=== PATIENT | male | born 1960 | race Caucasian/White ===

== ENCOUNTER 2019-08-10 09:00 | Emergency (ER) | payer BC, OTHER ==
[~2019-08-10] VITALS: Ht 182.9 cm; Wt 116.6 kg
[~2019-08-10 09:00] MED LIST: ASPI-482 PO; CARV12.511 PO; CLOP75TA PO; HYDR-2145 PO; LOSA100T14 PO; MULT-18 PO; NIAC500T82 PO; PANTOPROZOLE; SIMV80TA17 PO
--- NOTE | 2019-08-10 10:58 | PHYS DOC ---
Past Medical History Past Medical History: CAD, Kidney Stone Past Surgical History: Angioplasty, Coronary Bypass Surgery Smoking: Cigarettes (The patient is a nonsmoker.) Adult General Chief Complaint Chief Complaint: FLANK PAIN HPI HPI Patient is a 58-year-old male who presents to the emergency department for evaluation. He states he awakened yesterday morning with right-sided flank pain, which feels similar to his prior kidney stone episodes. He states he has a history of a large intrarenal calculus on the right side, possibly a staghorn- type calculus, which has been seen on prior imaging. He reports some decreased urine output, and some increased urinary frequency, but did not have any dysuria or hematuria. He has not had any nausea, or vomiting. He reports his pain is significantly improved this morning, to the point that he declines any need for analgesics at this time. He denies any chest pain shortness of breath, dizziness or lightheadedness. There are no alleviating or exacerbating factors to his symptoms. Review of Systems Review of Systems Constitutional: Denies fever or chills [] Eyes: Denies change in visual acuity, redness, or eye pain [] HENT: Denies nasal congestion or sore throat [] Respiratory: Denies cough or shortness of breath [] Cardiovascular: The patient denies any shortness of breath, chest pain, palpitations, or orthopnea [] GI: Denies abdominal pain, nausea, vomiting, bloody stools or diarrhea [] : Denies dysuria or hematuria [] Musculoskeletal: Denies back pain or joint pain [] Integument: Denies rash or skin lesions [] Neurologic: Denies headache, focal weakness or sensory changes [] Endocrine: Denies polyuria or polydipsia [] All other systems were reviewed and found to be within normal limits, except as documented in this note. Allergies Allergies Allergies Coded Allergies Type Severity Reaction Last Updated Verified No Known Drug Allergies 03/26/14 No Physical Exam Physical Exam PHYSICAL EXAM: CONSTITUTIONAL: Well developed, well nourished HEAD: normocephalic, atraumatic EENT: PERRL, EOMI. Conjunctivae normal color, sclerae non-icteric; moist mucous membranes. NECK: Supple, non-tender; no meningismus. LUNGS: Lungs CTA, breathing even and unlabored. Normal air movement. HEART: Regular rate and rhythm, no murmur CHEST: No deformity; non-tender ABDOMEN: The abdomen is soft, and non-tender, no masses or bruits. EXTREM: Normal ROM; no deformity, no calf tenderness. Normal pulses palpable in all extremities. There is no pedal edema. SKIN: No rash; no diaphoresis NEURO: Alert; normal speech and cognition; CN's grossly intact; strength grossly intact without focal deficit. BACK: No CVA TTP. Current Patient Data Vital Signs Vital Signs Date Time Temp Pulse Resp B/P (MAP) Pulse Ox O2 Delivery O2 Flow Rate FiO2 08/10/19 10:56 98.0 59 20 154/67 (96) 99 Room Air 98.0 Lab Values Laboratory Tests Test 08/10/19 10:41 08/10/19 11:18 08/10/19 12:05 Urine Collection Type Unknown Urine Color Yellow Urine Clarity Clear Urine pH 6.0 Urine Specific [place] 1.020 Urine Protein Negative mg/dL (NEG-TRACE) Urine Glucose (UA) Negative mg/dL (NEG) Urine Ketones (Stick) Negative mg/dL (NEG) Urine Blood Negative (NEG) Urine Nitrite Negative (NEG) Urine Bilirubin Negative (NEG) Urine Urobilinogen Dipstick 0.2 mg/dL (0.2 mg/dL) Urine Leukocyte Esterase Negative (NEG) Urine RBC Rare /HPF (0-2) Urine WBC Rare /HPF (0-4) Urine Squamous Epithelial Cells Occ /LPF Urine Bacteria 0 /HPF (0-FEW) Urine Mucus Slight /LPF Troponin I Quantitative < 0.017 ng/mL (0.000-0.055) White Blood Count 14.7 x10^3/uL (4.0-11.0) H Red Blood Count 4.54 x10^6/uL (4.30-5.70) Hemoglobin 13.5 g/dL (13.0-17.5) Hematocrit 40.4 % (39.0-53.0) Mean Corpuscular Volume 89 fL (79-100) Mean Corpuscular Hemoglobin 30 pg (25-35) Mean Corpuscular Hemoglobin Concent 33 g/dL (31-37) Red Cell Distribution Width 14.2 % (11.5-14.5) Platelet Count 249 x10^3/uL (140-400) Neutrophils (%) (Auto) 79 % (31-73) H Lymphocytes (%) (Auto) 12 % (24-48) L Monocytes (%) (Auto) 8 % (0-9) Eosinophils (%) (Auto) 0 % (0-3) Basophils (%) (Auto) 0 % (0-3) Neutrophils # (Auto) 11.7 x10^3/uL (1.8-7.7) H Lymphocytes # (Auto) 1.8 x10^3/uL (1.0-4.8) Monocytes # (Auto) 1.2 x10^3/uL (0.0-1.1) H Eosinophils # (Auto) 0.0 x10^3/uL (0.0-0.7) Basophils # (Auto) 0.1 x10^3/uL (0.0-0.2) Sodium Level 141 mmol/L (136-145) Potassium Level 4.1 mmol/L (3.5-5.1) Chloride Level 107 mmol/L (98-107) Carbon Dioxide Level 24 mmol/L (21-32) Anion Gap 10 (6-14) Blood Urea Nitrogen 16 mg/dL (8-26) Creatinine 1.4 mg/dL (0.7-1.3) H Estimated GFR (Cockcroft-Gault) 51.7 BUN/Creatinine Ratio 11 (6-20) Glucose Level 99 mg/dL (70-99) Calcium Level 9.6 mg/dL (8.5-10.1) Total Bilirubin 1.0 mg/dL (0.2-1.0) Aspartate Amino Transferase (AST) 16 U/L (15-37) Alanine Aminotransferase (ALT) 15 U/L (16-63) L Alkaline Phosphatase 68 U/L (46-116) Total Protein 7.4 g/dL (6.4-8.2) Albumin 3.6 g/dL (3.4-5.0) Albumin/Globulin Ratio 0.9 (1.0-1.7) L Lipase 64 U/L (73-393) L Laboratory Tests 08/10/19 12:05 Laboratory Tests 08/10/19 12:05 EKG EKG Normal sinus rhythm at a rate of 60 beats for minute, normal axis, right bundle- branch block with otherwise normal intervals, without acute ischemic ST/T changes.[] Radiology/Procedures Radiology/Procedures PROCEDURE: CT ABDOMEN PELVIS WO CONTRAST CT ABDOMEN PELVIS WO CONTRAST Indication: Right flank pain, history of renal stones. Exposure: One or more of the following individualized dose reduction techniques were utilized for this examination: 1. Automated exposure control 2. Adjustment of the mA and/or kV according to patient size 3. Use of iterative reconstruction technique. Comparison: Limited axial images are available from a prior study of 04/17/2005. Technique: No intravenous contrast given. No oral contrast per request. Findings: Evaluation of solid viscera, bowel and vasculature is compromised by the noncontrast technique. Mild markings are identified in the lung bases, compatible with atelectasis. Coronary arteries are densely calcified. Heart size appears mildly enlarged. Small hypodense lesion in the right lobe of liver measures 8 mm, too small to characterize but would commonly be benign without other risk factors. Spleen unremarkable. Pancreas unremarkable. Small right adrenal gland nodule measures 17 mm not clearly seen on the prior study but that could be due to technique and slice thickness differences. There is also a fatty mass at the right adrenal measuring 2.0 cm diameter, was seen on the prior study. Left adrenal unremarkable. Mild right hydronephrosis and ureteric dilatation to the very distal right ureter where there is a 9 mm calculus. Multiple additional intrarenal calculi on the right largest in the upper pole measuring 9 mm. Mild stranding within the right perinephric fat. Mild right renal swelling. No evidence of left hydronephrosis or calculus. 12 mm lesion at the anterior right kidney measures about 25 Hounsfield units, greater than simple cystic density. Low-density lesion of the right kidney is most likely a cyst. No calcified gallstone. Aorta is nonaneurysmal. Mild aortic calcification. Small mesenteric and aortocaval lymph nodes are identified without evidence of pathologic enlargement. No evidence of acute colitis. No significant small bowel distention. The appendix is not clearly visualized. Examination of bowel is limited due to lack of oral contrast. Moderate retained stool within the colon particularly on the right. No significant ascites. No evidence of pneumoperitoneum. Urinary bladder is nondistended, difficult to evaluate. Prostate gland is mildly enlarged. Degenerative spondylosis. Retrolisthesis of the L5 vertebral body to L4 and S1. Severe lumbar stenosis, greatest at L4-L5. No evidence of aggressive bone destruction IMPRESSION: 1. Coronary artery calcification. 2. At least mildly obstructive calculus in the distal right ureter, measures 9 mm. Right perinephric stranding could be postobstructive or indicative of pyelonephritis. Additional intrarenal calculi on the right. 3. Small fatty mass of the right adrenal gland, roughly similar as prior images, likely a myelolipoma. Number there is also a small soft tissue density mass in the right adrenal measuring 17 mm, not definitely seen previously but that could be due to technique difference. Still, this could represent a benign adenoma. Could further evaluate with MRI or follow-up CT. 4. Couple of right renal lesions, one of which is slightly hyperdense, could indicate hemorrhagic cyst. Could be further evaluated with renal ultrasound. 5. Lumbar spondylosis with severe stenosis. 6. Small subcentimeter liver lesion, most likely benign in the absence of other risk factors. [] Course & Med Decision Making Course & Med Decision Making Pertinent Labs and Imaging studies reviewed. (See chart for details) [] 1:35 PM: The patient's condition remains stable. his pain remains relatively well controlled and is to continues to decline the need for analgesic medication at this time. He expresses significant concern about the size of the stone, it is unlikeliness to pass, the fact that he works out of town, and is afraid that he will have a recurrence of pain while at work. There is no urology coverage available at this hospital. I discussed options for outpatient follow-up with the patient is not happy about this option. He would like to be hospitalized to have his stone managed more definitively. would be his facility of choice and I'll attempt to arrange transfer. 2:15 PM: Patient was accepted to , by Dr. Fuentes, urology. Will reportedly plan on stent. Pt informed. Bed HC805. Will x-adalberto via EMS. Dragon Disclaimer Dragon Disclaimer This electronic medical record was generated, in whole or in part, using a voice recognition dictation system. Departure Departure Impression: Primary Impression: Kidney stone Disposition: 02 TRANSFER [facility] Condition: STABLE Referrals: KASIA MUSTAFA MD (PCP) ISAIAS ANDERSON MD Aug 10, 2019 10:58
[2019-08-10 11:03] LABS: BILIRUBIN,URINE NEGATIVE (NEG); CLARITY,URINE CLEAR; COLOR,URINE YELLOW; NITRITE,URINE NEGATIVE (NEG); PROTEIN,URINE NEGATIVE (NEG-TRACE); UROBILINOGEN,URINE 0.2 mg/dL (0.2 mg/dL)
[2019-08-10 11:09] LABS: SQUAMOUS EPITHELIAL CELL,UR OCC /LPF
[2019-08-10 11:10] LABS: BACTERIA,URINE 0 /HPF (0-FEW); RBC,URINE RARE /HPF (0-2); WBC,URINE RARE /HPF (0-4)
--- NOTE | 2019-08-10 12:02 | RAD ---
CT ABDOMEN PELVIS WO CONTRAST Indication: Right flank pain, history of renal stones. Exposure: One or more of the following individualized dose reduction techniques were utilized for this examination: 1. Automated exposure control 2. Adjustment of the mA and/or kV according to patient size 3. Use of iterative reconstruction technique. Comparison: Limited axial images are available from a prior study of 04/17/2005. Technique: No intravenous contrast given. No oral contrast per request. Findings: Evaluation of solid viscera, bowel and vasculature is compromised by the noncontrast technique. Mild markings are identified in the lung bases, compatible with atelectasis. Coronary arteries are densely calcified. Heart size appears mildly enlarged. Small hypodense lesion in the right lobe of liver measures 8 mm, too small to characterize but would commonly be benign without other risk factors. Spleen unremarkable. Pancreas unremarkable. Small right adrenal gland nodule measures 17 mm not clearly seen on the prior study but that could be due to technique and slice thickness differences. There is also a fatty mass at the right adrenal measuring 2.0 cm diameter, was seen on the prior study. Left adrenal unremarkable. Mild right hydronephrosis and ureteric dilatation to the very distal right ureter where there is a 9 mm calculus. Multiple additional intrarenal calculi on the right largest in the upper pole measuring 9 mm. Mild stranding within the right perinephric fat. Mild right renal swelling. No evidence of left hydronephrosis or calculus. 12 mm lesion at the anterior right kidney measures about 25 Hounsfield units, greater than simple cystic density. Low-density lesion of the right kidney is most likely a cyst. No calcified gallstone. Aorta is nonaneurysmal. Mild aortic calcification. Small mesenteric and aortocaval lymph nodes are identified without evidence of pathologic enlargement. No evidence of acute colitis. No significant small bowel distention. The appendix is not clearly visualized. Examination of bowel is limited due to lack of oral contrast. Moderate retained stool within the colon particularly on the right. No significant ascites. No evidence of pneumoperitoneum. Urinary bladder is nondistended, difficult to evaluate. Prostate gland is mildly enlarged. Degenerative spondylosis. Retrolisthesis of the L5 vertebral body to L4 and S1. Severe lumbar stenosis, greatest at L4-L5. No evidence of aggressive bone destruction IMPRESSION: 1. Coronary artery calcification. 2. At least mildly obstructive calculus in the distal right ureter, measures 9 mm. Right perinephric stranding could be postobstructive or indicative of pyelonephritis. Additional intrarenal calculi on the right. 3. Small fatty mass of the right adrenal gland, roughly similar as prior images, likely a myelolipoma. Number there is also a small soft tissue density mass in the right adrenal measuring 17 mm, not definitely seen previously but that could be due to technique difference. Still, this could represent a benign adenoma. Could further evaluate with MRI or follow-up CT. 4. Couple of right renal lesions, one of which is slightly hyperdense, could indicate hemorrhagic cyst. Could be further evaluated with renal ultrasound. 5. Lumbar spondylosis with severe stenosis. 6. Small subcentimeter liver lesion, most likely benign in the absence of other risk factors. Electronically signed by: Dale Hook MD (08/10/2019 11:59 AM) [id number]
[2019-08-10 12:23] LABS: BASO # 0.1 x10^3/uL (0.0-0.2); BASO % 0 % (0-3); EOS % 0 % (0-3); HEMATOCRIT 40.4 % (39.0-53.0); HEMOGLOBIN 13.5 g/dL (13.0-17.5); LYMPH # 1.8 x10^3/uL (1.0-4.8); LYMPH % 12 % (24-48); MEAN CORPUSCULAR HEMOGLOBIN 30 pg (25-35); MEAN CORPUSCULAR HGB CONC 33 g/dL (31-37); MEAN CORPUSCULAR VOLUME 89 fL (79-100); MONO # 1.2 x10^3/uL (0.0-1.1); MONO % 8 % (0-9); NEUT # 11.7 x10^3/uL (1.8-7.7); NEUT % 79 % (31-73); PLATELET COUNT 249 x10^3/uL (140-400); RED BLOOD COUNT 4.54 x10^6/uL (4.30-5.70); RED CELL DISTRIBUTION WIDTH 14.2 % (11.5-14.5); WHITE BLOOD COUNT 14.7 x10^3/uL (4.0-11.0)
[2019-08-10 12:35] LABS: CALCIUM 9.6 mg/dL (8.5-10.1); CREATININE 1.4 mg/dL (0.7-1.3); GFR 51.7; POTASSIUM 4.1 mmol/L (3.5-5.1)
[2019-08-10 12:48] LABS: ALBUMIN 3.6 g/dL (3.4-5.0); ALBUMIN/GLOBULIN RATIO 0.9 (1.0-1.7); TOTAL PROTEIN 7.4 g/dL (6.4-8.2)
[2019-08-10 16:00] VITALS: BP 151/70
--- NOTE | 2019-08-11 07:32 | EKG ---
[facility] [address] [place] [address] Test Date: 2019-08-10 Test Time: 11:00:32 Pat Name: POP CARRASCO Department: Room: Gender: M [employer]: : [id number] Requested By: ISAIAS ANDERSON Order Number: [id number] Reading MD: Measurements Intervals [place] Rate: 60 P: 41 UT: 146 QRS: 48 QRSD: 156 T: 24 QT: 440 QTc: 440 Interpretive Statements SINUS RHYTHM RIGHT BUNDLE BRANCH BLOCK RVH WITH REPOLARIZATION ABNORMALITY QRS(T) CONTOUR ABNORMALITY CONSIDER INFERIOR MYOCARDIAL DAMAGE ABNORMAL ECG RI6.01 No previous ECG available for comparison
== END 2019-08-10 17:34 | disposition short-term general hospital (02) ==
LOC: ER 09:00
DX: N13.2 Hydronephrosis with renal and ureteral calculous obstruction (principal); I25.10 Atherosclerotic heart disease of native coronary artery without angina pectoris; Z95.5 Presence of coronary angioplasty implant and graft; Z95.1 Presence of aortocoronary bypass graft; M47.816 Spondylosis without myelopathy or radiculopathy, lumbar region; M48.061 Spinal stenosis, lumbar region without neurogenic claudication
CPT/HCPCS: 36415; 74176; 80053; 81001; 83690; 84484; 85025; 93005; 99285-25